=== PATIENT | female | born 1975 | race Caucasian/White ===

== ENCOUNTER 2021-04-04 01:39 | Emergency (ER) | payer OTHER ==
[~2021-04-04] VITALS: Ht 157.5 cm; Wt 86.4 kg
[2021-04-04 02:37] LABS: BILIRUBIN,URINE NEGATIVE (NEG); CLARITY,URINE CLEAR; COLOR,URINE YELLOW; NITRITE,URINE NEGATIVE (NEG); PROTEIN,URINE NEGATIVE (NEG-TRACE); UROBILINOGEN,URINE 0.2 mg/dL (0.2 mg/dL)
[2021-04-04 02:49] LABS: BASO # 0.2 x10^3/uL (0.0-0.2); BASO % 1 % (0-3); EOS # 0.3 x10^3/uL (0.0-0.7); EOS % 2 % (0-3); HEMATOCRIT 36.5 % (36.0-47.0); HEMOGLOBIN 12.4 g/dL (12.0-15.5); LYMPH # 2.8 x10^3/uL (1.0-4.8); LYMPH % 23 % (24-48); MEAN CORPUSCULAR HEMOGLOBIN 31 pg (25-35); MEAN CORPUSCULAR HGB CONC 34 g/dL (31-37); MEAN CORPUSCULAR VOLUME 91 fL (79-100); MONO # 0.7 x10^3/uL (0.0-1.1); MONO % 6 % (0-9); NEUT # 8.1 x10^3/uL (1.8-7.7); NEUT % 67 % (31-73); PLATELET COUNT 210 x10^3/uL (140-400); RED CELL DISTRIBUTION WIDTH 13.2 % (11.5-14.5)
[2021-04-04 02:49] LABS: BACTERIA,URINE MANY /HPF (0-FEW); RBC,URINE OCC /HPF (0-2); WBC,URINE 20-40 /HPF (0-4)
[2021-04-04] MEDS ORDERED: IV NORMAL SALINE 1000ML BAG 1,000 ML IV ONE (03:00)
[2021-04-04] MEDS ORDERED: KETOROLAC 30 MG/ML VIAL. IVP ONE (03:00)
[2021-04-04] MEDS ORDERED: METOCLOPRAMIDE HCL 10 MG/2 ML VIAL. IVP ONE (03:00)
[2021-04-04 03:34] LABS: ALBUMIN 3.2 g/dL (3.4-5.0); ALBUMIN/GLOBULIN RATIO 0.9 (1.0-1.7); CREATININE 0.8 mg/dL (0.6-1.0); GFR 77.6; MAGNESIUM 1.7 mg/dL (1.8-2.4); POTASSIUM 3.5 mmol/L (3.5-5.1); TOTAL BILIRUBIN 0.2 mg/dL (0.2-1.0); TOTAL PROTEIN 6.9 g/dL (6.4-8.2)
[2021-04-04 03:44] VITALS: BP 116/74
--- NOTE | 2021-04-04 03:51 | PHYS DOC ---
Past Medical History Additional Past Medical Histor: BREAST CA, THYROID DISEASE, OVARIAN CYSTS Past Surgical History: Cancer Surgery, Other Additional Past Surgical Histo: DOUBLE MASTECTOMY, OVARIAN CYST REMOVAL, 75% THYROIDECTOMY,PORT Smoking Status: Never Smoker Alcohol Use: Occasionally General Adult EDM: Chief Complaint: ABDOMINAL PAIN HPI: HPI: Patient is a 45 year old female presenting with abdominal pain for 3 hours. Patient's pain starts in the right upper quadrant and radiates to the right flank. She has a similar episode last Sunday but states today's episode is worse. She reports feeling hot and clammy but denies nausea, vomiting and diarrhea. Review of Systems: Review of Systems: Constitutional: Denies fever or chills Eyes: Denies redness or eye pain HENT: Denies nasal congestion or sore throat Respiratory: Denies cough or shortness of breath Cardiovascular: Denies chest pain or palpitations GI: Reports abdominal pain. Denies nausea, or vomiting : Denies dysuria or hematuria. Reports right flank pain Musculoskeletal: Denies back pain or joint pain Integument: Denies rash or skin lesions Neurologic: Denies headache, focal weakness or sensory changes Complete systems were reviewed and found to be within normal limits, except as documented in this note. Heart Score: C/O Chest Pain: N/A Current Medications: Current Medications Medications (Trade) Dose Ordered Sig/[facility] Start Time Stop Time Status Last Admin Dose Admin Ketorolac Tromethamine (Toradol 30mg Vial) 15 mg 1X ONCE 04/04/21 03:00 04/04/21 03:01 DC 04/04/21 02:40 15 MG Metoclopramide HCl (Reglan Vial) 10 mg 1X ONCE 04/04/21 03:00 04/04/21 03:01 DC 04/04/21 02:41 10 MG Sodium Chloride 1,000 ml @ 1,000 mls/hr 1X ONCE 04/04/21 03:00 04/04/21 03:59 04/04/21 02:42 1,000 MLS/HR Allergies: Allergies: Allergies Coded Allergies Type Severity Reaction Last Updated Verified No Known Drug Allergies 04/04/21 No Physical Exam: PE: Constitutional: Well developed, well nourished, mild distress, non-toxic appearance HENT: Normocephalic, atraumatic Eyes: PERRL, EOMI, conjunctiva normal, no discharge Neck: Normal range of motion, no tenderness, supple Lungs & Thorax: No respiratory distress, equal chest rise and fall Abdomen: Tenderness and guarding on the right upper quadrant. Normal bowel sounds in all quadrants. Skin: Warm, dry, no erythema, no rash Back: No tenderness, Tenderness to palpation at the right CVA Extremities: No tenderness, ROM intact, no edema Neurologic: Alert and oriented X 3, normal motor function, normal sensory function, no focal deficits noted Psychologic: Affect normal, judgment normal Current Patient Data: Labs: Laboratory Tests Test 04/04/21 01:42 04/04/21 02:38 Urine Collection Type Unknown Urine Color Yellow Urine Clarity Clear Urine pH 7.0 (<5.0-8.0) Urine Specific [place] 1.015 (1.000-1.030) Urine Protein Negative mg/dL (NEG-TRACE) Urine Glucose (UA) Negative mg/dL (NEG) Urine Ketones (Stick) Negative mg/dL (NEG) Urine Blood Negative (NEG) Urine Nitrite Negative (NEG) Urine Bilirubin Negative (NEG) Urine Urobilinogen Dipstick 0.2 mg/dL (0.2 mg/dL) Urine Leukocyte Esterase Moderate (NEG) Urine RBC Occ /HPF (0-2) Urine WBC 20-40 /HPF (0-4) Urine Squamous Epithelial Cells Many /LPF Urine Bacteria Many /HPF (0-FEW) Urine Mucus Mod /LPF White Blood Count 12.0 x10^3/uL (4.0-11.0) H Red Blood Count 4.00 x10^6/uL (3.50-5.40) Hemoglobin 12.4 g/dL (12.0-15.5) Hematocrit 36.5 % (36.0-47.0) Mean Corpuscular Volume 91 fL (79-100) Mean Corpuscular Hemoglobin 31 pg (25-35) Mean Corpuscular Hemoglobin Concent 34 g/dL (31-37) Red Cell Distribution Width 13.2 % (11.5-14.5) Platelet Count 210 x10^3/uL (140-400) Neutrophils (%) (Auto) 67 % (31-73) Lymphocytes (%) (Auto) 23 % (24-48) L Monocytes (%) (Auto) 6 % (0-9) Eosinophils (%) (Auto) 2 % (0-3) Basophils (%) (Auto) 1 % (0-3) Neutrophils # (Auto) 8.1 x10^3/uL (1.8-7.7) H Lymphocytes # (Auto) 2.8 x10^3/uL (1.0-4.8) Monocytes # (Auto) 0.7 x10^3/uL (0.0-1.1) Eosinophils # (Auto) 0.3 x10^3/uL (0.0-0.7) Basophils # (Auto) 0.2 x10^3/uL (0.0-0.2) Sodium Level 138 mmol/L (136-145) Potassium Level 3.5 mmol/L (3.5-5.1) Chloride Level 102 mmol/L (98-107) Carbon Dioxide Level 26 mmol/L (21-32) Anion Gap 10 (6-14) Blood Urea Nitrogen 17 mg/dL (7-20) Creatinine 0.8 mg/dL (0.6-1.0) Estimated GFR (Cockcroft-Gault) 77.6 BUN/Creatinine Ratio 21 (6-20) H Glucose Level 115 mg/dL (70-99) H Calcium Level 9.0 mg/dL (8.5-10.1) Magnesium Level 1.7 mg/dL (1.8-2.4) L Total Bilirubin 0.2 mg/dL (0.2-1.0) Aspartate Amino Transferase (AST) 20 U/L (15-37) Alanine Aminotransferase (ALT) 43 U/L (14-59) Alkaline Phosphatase 72 U/L (46-116) Total Protein 6.9 g/dL (6.4-8.2) Albumin 3.2 g/dL (3.4-5.0) L Albumin/Globulin Ratio 0.9 (1.0-1.7) L Lipase 91 U/L (73-393) Laboratory Tests 04/04/21 02:38 Laboratory Tests 04/04/21 02:38 Vital Signs: Vital Signs Date Time Temp Pulse Resp B/P (MAP) Pulse Ox O2 Delivery O2 Flow Rate FiO2 04/04/21 02:44 70 17 135/86 (102) 97 Room Air 04/04/21 01:49 98.1 98.1 Course & Med Decision Making: Course & Med Decision Making 40 year old female presenting with right upper quadrant abdominal pain and right flank pain for 3 hours. Patient has no nausea, vomiting or diarrhea and feels hot and clammy. CT of the abdomen and pelvis showed cholelithiasis and negative for kidney stone. Urine showed moderate leukocyte esterase and bacteria, possibly suggestive of pyelonephritis. Based on these findings, patient's condition may be caused by cholelithiasis and/or pyelonephritis. Patient will be treated with antibiotics and discharged home. Patient stable for discharge with outpatient follow-up with PCP. Discussed findings and plan with patient, who acknowledges understanding and agreement. Dragon Disclaimer: Dragon Disclaimer: This electronic medical record was generated, in whole or in part, using a voice recognition dictation system. Departure Departure Impression: Primary Impression: Cholelithiasis Qualified Codes: K80.20 - Calculus of gallbladder without cholecystitis without obstruction Additional Impression: Flank pain Disposition: HOME / SELF CARE / HOMELESS Condition: STABLE Referrals: CATERINA GENTILE MD (PCP) HARVINDER JETT MD Patient Instructions: Abdominal Pain, [id number], Cholelithiasis, [id number], Pyelonephritis, Adult, [id number] Scripts Hydrocodone Bit/Acetaminophen (HYDROCODONE-APAP 5-325 ) 1 Tab Tablet 0.5-1 TAB PO PRN Q6HRS PRN for PAIN, #14 TAB 0 Refills Prov: FABIO SINGLETON DO 04/04/21 Cephalexin (CEPHALEXIN) 500 Mg Tablet 1 TAB PO TID for 7 Days, #21 TAB Prov: FABIO SINGLETON DO 04/04/21 FABIO SINGLETON DO Apr 04, 2021 03:51
--- NOTE | 2021-04-04 03:53 | RAD ---
EXAM: CT ABDOMEN/PELVIS WITHOUT CONTRAST. HISTORY: Right flank pain. TECHNIQUE: Computed tomography of the abdomen and pelvis was performed without intravenous contrast. One or more of the following individualized dose reduction techniques were utilized for this examinat ion: 1. Automated exposure control. 2. Adjustment of the mA and/or kV according to patient size. 3. Use of iterative reconstruction technique. COMPARISON: None. FINDINGS: Lung windows through the visualized portions of the bases reveal a mild pectus excavatum de formity. Bilateral mastectomy changes are suspected. Bone windows reveal no suspicious lesions. Hypoattenuation of the hepatic parenchyma is consistent with diffuse hepatic steatosis. There are andrea cified granulomas in the spleen. A gallstone is noted. An 18 x 12 mm nodule in the left adrenal gland measures 3 Hounsfield units and is consistent with a benign adenoma. The right adrenal gland is unre markable. There are no pathologically enlarged lymph nodes. The appendix is not inflamed. There is no small bowel obstruction. There are no renal or ureteral calculi. There is no hydronephrosis. The kidneys are unremarkable with out contrast. IMPRESSION: 1. No renal or ureteral calculi. 2. Cholelithiasis. 3. 18 mm benign left adrenal adenoma. 4. Suspect diffuse hepatic steatosis. Electronically signed by: Chantel Hoang MD (04/04/2021 3:50 AM) [facility]
[2021-04-04] MEDS ORDERED: CEPH500T PO (04:11)
[2021-04-04] MEDS ORDERED: HYDR-2761 PO (04:11)
[2021-04-04] MEDS ORDERED: cefTRIAXone IV Push 1 GM VIAL. IVP ONE (04:30)
== END 2021-04-04 04:30 | disposition home or self-care (01) ==
LOC: ER 01:39
DX: K80.20 Calculus of gallbladder without cholecystitis without obstruction (principal)
CPT/HCPCS: 36415; 74176; 80053; 81001; 83690; 83735; 85025; 87086; 96361; 96374; 96375; 99285; J0696; J1885; J2765; J7030

== ENCOUNTER 2021-05-23 05:07 | Observation (INO) | payer OTHER ==
[~2021-05-23] VITALS: Ht 157.5 cm; Wt 86.4 kg
[~2021-05-23 05:07] MED LIST: CEPH500T PO; HYDR-2761 PO
[2021-05-23] MEDS ORDERED: IV NORMAL SALINE 1000ML BAG 1,000 ML IV ONE (06:15)
[2021-05-23] MEDS ORDERED: ONDANSETRON PF 4 MG/2 ML VIAL. IVP ONE (06:15)
--- NOTE | 2021-05-23 06:24 | PHYS DOC ---
Past Medical History Additional Past Medical Histor: BREAST CA, THYROID DISEASE, OVARIAN CYSTS Past Surgical History: Cancer Surgery, Other Additional Past Surgical Histo: DOUBLE MASTECTOMY, OVARIAN CYST REMOVAL, 75% THYROIDECTOMY,PORT Smoking Status: Never Smoker Alcohol Use: None Adult General Chief Complaint Chief Complaint: ABDOMINAL PAIN HPI HPI The patient is a 45-year-old female with a history of hypertension and breast cancer treated to remission, on tamoxifen. In March she was found to have cholelithiasis on CT scan after an episode of right upper quadrant pain. She presents for evaluation of epigastric and right upper quadrant pain with radiation to the back, all with onset about 8 to 10 hours prior to arrival. Patient states the discomfort today is identical to the discomfort that she had back in March when her cholelithiasis was diagnosed. Discomfort is constant and a 9 out of 10 in severity at present. Associated nausea with one episode of nonbloody vomiting. No associated fevers, hematemesis, hematochezia or melena, upper respiratory congestion/rhinorrhea, cough, sore throat, shortness of breath or chest pain of any kind, lower abdominal pain of any kind, flank pain, midline back pain, dysuria, hematuria, polyuria or oliguria, changes in bowel habits. Patient is alert and pleasantly and appropriately interactive and in no acute distress with appropriate vital signs upon initial evaluation here in the emergency department. Review of Systems Review of Systems A 12 point review of systems was completed and was negative except where noted in HPI above. Current Medications Current Medications Current Medications Medications (Trade) Dose Ordered Sig/[facility] Start Time Stop Time Status Last Admin Dose Admin Dextrose/Lactated Ringer's 1,000 ml @ 125 mls/hr 1X ONCE 05/23/21 07:45 05/23/21 15:44 Ketorolac Tromethamine (Toradol 15mg Vial) 15 mg 1X ONCE 05/23/21 06:30 05/23/21 06:31 DC 05/23/21 06:58 15 MG Morphine Sulfate (Morphine Sulfate) 2 mg PRN Q2HR PRN 05/23/21 07:45 05/24/21 07:44 Ondansetron HCl (Zofran) 4 mg PRN Q8HRS PRN 05/23/21 07:45 05/24/21 07:44 Piperacillin Sod/ Tazobactam Sod 4.5 gm/Dextrose 100 ml @ 200 mls/hr 1X ONCE 05/23/21 07:32 05/23/21 07:59 Piperacillin Sod/ Tazobactam Sod 4.5 gm/Sodium Chloride 100 ml @ 200 mls/hr 1X ONCE 05/23/21 07:30 05/23/21 07:32 DC Sodium Chloride 1,000 ml @ 1,000 mls/hr 1X ONCE 05/23/21 06:15 05/23/21 07:14 DC 05/23/21 06:29 1,000 MLS/HR Allergies Allergies Allergies Coded Allergies Type Severity Reaction Last Updated Verified No Known Drug Allergies 04/04/21 No Physical Exam Physical Exam Middle-aged female appearing nontoxic and in no acute distress. Head is normocephalic and atraumatic. Neck is supple and nontender. Oropharynx is moist. Lungs are clear to auscultation at all stations. There is a normal S1 and S2 without rubs or gallops and capillary refill is appropriate, less than 2 seconds globally. Abdomen is soft and nondistended with mild focal epigastric and right upper quadrant tenderness to palpation without rebound or guarding. Skin is warm and dry without cyanosis, clubbing or edema. Psychiatrically, the patient demonstrates appropriate mood and affect and is alert. Current Patient Data Vital Signs Vital Signs Date Time Temp Pulse Resp B/P (MAP) Pulse Ox O2 Delivery O2 Flow Rate FiO2 05/23/21 07:14 89 16 135/88 (104) 98 Room Air 05/23/21 05:24 98.0 98.0 Lab Values Laboratory Tests Test 05/23/21 05:15 05/23/21 05:18 05/23/21 06:30 Urine Collection Type Unknown Urine Color Yellow Urine Clarity Clear Urine pH 6.5 (<5.0-8.0) Urine Specific [place] 1.020 (1.000-1.030) Urine Protein Negative mg/dL (NEG-TRACE) Urine Glucose (UA) Negative mg/dL (NEG) Urine Ketones (Stick) Trace mg/dL (NEG) Urine Blood Negative (NEG) Urine Nitrite Negative (NEG) Urine Bilirubin Negative (NEG) Urine Urobilinogen Dipstick 0.2 mg/dL (0.2 mg/dL) Urine Leukocyte Esterase Small (NEG) Urine RBC Occ /HPF (0-2) Urine WBC 6-10 /HPF (0-4) Urine Squamous Epithelial Cells Many /LPF Urine Bacteria Many /HPF (0-FEW) Urine Mucus Marked /LPF Urine Yeast Present /HPF POC Urine HCG, Qualitative Hcg negative (Negative) White Blood Count 12.4 x10^3/uL (4.0-11.0) H Red Blood Count 4.34 x10^6/uL (3.50-5.40) Hemoglobin 13.4 g/dL (12.0-15.5) Hematocrit 39.4 % (36.0-47.0) Mean Corpuscular Volume 91 fL (79-100) Mean Corpuscular Hemoglobin 31 pg (25-35) Mean Corpuscular Hemoglobin Concent 34 g/dL (31-37) Red Cell Distribution Width 13.2 % (11.5-14.5) Platelet Count 249 x10^3/uL (140-400) Neutrophils (%) (Auto) 83 % (31-73) H Lymphocytes (%) (Auto) 14 % (24-48) L Monocytes (%) (Auto) 3 % (0-9) Eosinophils (%) (Auto) 0 % (0-3) Basophils (%) (Auto) 1 % (0-3) Neutrophils # (Auto) 10.3 x10^3/uL (1.8-7.7) H Lymphocytes # (Auto) 1.7 x10^3/uL (1.0-4.8) Monocytes # (Auto) 0.3 x10^3/uL (0.0-1.1) Eosinophils # (Auto) 0.0 x10^3/uL (0.0-0.7) Basophils # (Auto) 0.1 x10^3/uL (0.0-0.2) Laboratory Tests 05/23/21 06:30 EKG EKG [] Radiology/Procedures Radiology/Procedures Clinical History: Right upper quadrant pain and epigastric pain Technique: Sonographic examination of the right upper quadrant of the abdomen was performed and multiple static images were obtained. Comparison: none Findings: Liver: The majority of the liver is visualized and there is increased echogen icity and attenuation of sound which further limits the sensitivity for possible subtle liver lesion. Common bile duct: Dilated to 9 mm in diameter. Gallbladder: Distended with mild wall thickening up to 5 mm there is some small stones or gravel.. Pancreas: is not well visualized due to overlying bowel gas. Right kidney: appears normal and measures 10 cm in length. Aorta: normal IVC: normal Impression: 1. Cholelithiasis and acute cholecystitis. 2. Fatty infiltration of liver. 3. Dilated common bile duct. Electronically signed by: Rut Zuñiga III, MD (05/23/2021 7:00 AM) [facility] DICTATED and SIGNED BY: RUT ZUÑIGA III, MD DATE: 05/23/21 [id number] 0 Course & Med Decision Making Course & Med Decision Making Will place IV and give IV fluids and medication for nausea and discomfort as noted and will check labs, urine and a right upper quadrant ultrasound and will then reevaluate. 0720: Work-up as above, remarkable for sonographic evidence of acute cholecystitis with possible superimposed acute choledocholithiasis. Initial chemistry blood draw hemolyzed so lab was redrawn; still waiting on LFTs and l ipase at this writing. Dose Zosyn given. Pain is very well controlled on serial reassessments. Will bring in for further care under hospitalist Dr. Brumfield, who graciously accepts. Dr. Gresham and Dr. Anne have been consulted for inpatient management. Dragon Disclaimer Dragon Disclaimer This electronic medical record was generated, in whole or in part, using a voice recognition dictation system. Departure Departure Impression: Primary Impression: Acute cholecystitis Disposition: ADMITTED INPATIENT Condition: STABLE Referrals: CATERINA GENTILE MD (PCP) MYA SPAIN MD May 23, 2021 06:24
[2021-05-23] MEDS ORDERED: KETOROLAC 15 MG/ML VIAL. IVP ONE (06:30)
[2021-05-23] MEDS ORDERED: MORPHINE SULFATE 4 MG/ML INJ. IVP ONE (06:30)
[2021-05-23 06:37] LABS: BASO # 0.1 x10^3/uL (0.0-0.2); BASO % 1 % (0-3); EOS % 0 % (0-3); HEMATOCRIT 39.4 % (36.0-47.0); HEMOGLOBIN 13.4 g/dL (12.0-15.5); LYMPH # 1.7 x10^3/uL (1.0-4.8); LYMPH % 14 % (24-48); MEAN CORPUSCULAR HEMOGLOBIN 31 pg (25-35); MEAN CORPUSCULAR HGB CONC 34 g/dL (31-37); MEAN CORPUSCULAR VOLUME 91 fL (79-100); MONO # 0.3 x10^3/uL (0.0-1.1); MONO % 3 % (0-9); NEUT # 10.3 x10^3/uL (1.8-7.7); NEUT % 83 % (31-73); PLATELET COUNT 249 x10^3/uL (140-400); RED BLOOD COUNT 4.34 x10^6/uL (3.50-5.40); RED CELL DISTRIBUTION WIDTH 13.2 % (11.5-14.5); WHITE BLOOD COUNT 12.4 x10^3/uL (4.0-11.0)
[2021-05-23 06:47] LABS: BILIRUBIN,URINE NEGATIVE (NEG); CLARITY,URINE CLEAR; COLOR,URINE YELLOW; NITRITE,URINE NEGATIVE (NEG); PH,URINE 6.5 (<5.0-8.0); PROTEIN,URINE NEGATIVE (NEG-TRACE); UROBILINOGEN,URINE 0.2 mg/dL (0.2 mg/dL)
[2021-05-23 06:59] LABS: BACTERIA,URINE MANY /HPF (0-FEW)
[2021-05-23 07:00] LABS: RBC,URINE OCC /HPF (0-2); YEAST,URINE PRESENT /HPF
--- NOTE | 2021-05-23 07:03 | RAD ---
Clinical History: Right upper quadrant pain and epigastric pain Technique: Sonographic examination of the right upper quadrant of the abdomen was performed and mult iple static images were obtained. Comparison: none Findings: Liver: The majority of the liver is visualized and there is increased echogenicity and attenuation o f sound which further limits the sensitivity for possible subtle liver lesion. Common bile duct: Dilated to 9 mm in diameter. Gallbladder: Distended with mild wall thickening up to 5 mm there is some small stones or gravel.. Pancreas: is not well visualized due to overlying bowel gas. Right kidney: appears normal and measures 10 cm in length. Aorta: normal IVC: normal Impression: 1. Cholelithiasis and acute cholecystitis. 2. Fatty infiltration of liver. 3. Dilated common bile duct. Electronically signed by: Jeremy Orozco III, MD (05/23/2021 7:00 AM) [facility]
[2021-05-23] MEDS ORDERED: PIPERACILLIN/TAZOBACTAM 4.5 GM in IV NORMAL SALINE 100ML 100 ML IV ONE (07:30)
[2021-05-23] MEDS ORDERED: PIPERACILLIN/TAZOBACTAM 4.5 GM in IV DEXTROSE 5% 100ML 100 ML IV ONE (07:32)
[2021-05-23] MEDS ORDERED: MORPHINE SULFATE 2 MG/ML INJ. IVP PRN (07:45)
[2021-05-23] MEDS ORDERED: ONDANSETRON PF 4 MG/2 ML VIAL. IVP PRN (07:45)
[2021-05-23] MEDS ORDERED: IV DEXTROSE 5%-LACT RINGERS 1,000 ML IV ONE (07:45)
[2021-05-23 08:50] LABS: CALCIUM 9.4 mg/dL (8.5-10.1); CREATININE 0.8 mg/dL (0.6-1.0); GFR 77.6; POTASSIUM 3.6 mmol/L (3.5-5.1)
--- NOTE | 2021-05-23 08:53 | PDOC2 ---
GI CONSULT Date of Service: DATE: 05/23/21 TIME: 08:52 Reason For Consult: choledocholithiasis, cholecystitis HPI: HPI: Pleasant 45 y/o female w/ worsening upper abdominal discomfort since last night at 9:30 p.m. - awoke from sleep, occurred several hours after eating. Associated w/ n/v and radiation of pain around/through to upper back. Similar symptoms in 03/2021 (without vomiting) - at that time was noted to have cholelithiasis on CT but also question of kidney infection - was treated w/ antibiotics, pain resolved, and no issues til last night. H/o heartburn improved w/ daily Rx medication - initially bothersome during chemo 3 years ago, then some recurrence recently. Additionally had some dysphagia during chemo as well - food going down slowly, but not necessarily getting stuck - no issues w/ this now though. No hematemesis, hematochezia, melena, diarrhea, or constipation. Has gained weight. No previous EGD or colonoscopy but her PCP has recommended these be scheduled at [facility] soon. No liver, pancreas, or PUD history. No NSAIDs. Had COVID vaccines/booster. PMH: PMH: HTN, breast cancer s/p bilateral mastectomy and chemo on tamoxifen, goiter s/p partial thyroidectomy, adrenal adenoma ovarian cystectomy FH: Family History: Other (grandmother had cholecystectomy) Social History: Smoke: Quit ALCOHOL: none Drugs: None ROS: GEN: Denies fevers, chills, sweats HEENT: Denies blurred vision, sore throat CV: Denies chest pain RESP: Denies shortness of air, cough GI: Per HPI : Denies hematuria, dysuria ENDO: +weight gain NEURO: Denies confusion, dizziness MSK: Denies weakness, joint pain/swelling SKIN: Denies jaundice, pruritus Vitals: Vitals: Vital Signs Date Time Temp Pulse Resp B/P (MAP) Pulse Ox O2 Delivery O2 Flow Rate FiO2 05/23/21 08:26 63 18 139/86 (103) 99 Room Air 05/23/21 05:24 98.0 98.0 Labs: Labs: Laboratory Tests Test 05/23/21 05:15 05/23/21 05:18 05/23/21 06:30 05/23/21 07:26 Urine Collection Type Unknown Urine Color Yellow Urine Clarity Clear Urine pH 6.5 (<5.0-8.0) Urine Specific [place] 1.020 (1.000-1.030) Urine Protein Negative mg/dL (NEG-TRACE) Urine Glucose (UA) Negative mg/dL (NEG) Urine Ketones (Stick) Trace mg/dL (NEG) Urine Blood Negative (NEG) Urine Nitrite Negative (NEG) Urine Bilirubin Negative (NEG) Urine Urobilinogen Dipstick 0.2 mg/dL (0.2 mg/dL) Urine Leukocyte Esterase Small (NEG) Urine RBC Occ /HPF (0-2) Urine WBC 6-10 /HPF (0-4) Urine Squamous Epithelial Cells Many /LPF Urine Bacteria Many /HPF (0-FEW) Urine Mucus Marked /LPF Urine Yeast Present /HPF Bedside Urine HCG, Qualitative Hcg negative (Negative) White Blood Count 12.4 x10^3/uL (4.0-11.0) Red Blood Count 4.34 x10^6/uL (3.50-5.40) Hemoglobin 13.4 g/dL (12.0-15.5) Hematocrit 39.4 % (36.0-47.0) Mean Corpuscular Volume 91 fL (79-100) Mean Corpuscular Hemoglobin 31 pg (25-35) Mean Corpuscular Hemoglobin Concent 34 g/dL (31-37) Red Cell Distribution Width 13.2 % (11.5-14.5) Platelet Count 249 x10^3/uL (140-400) Neutrophils (%) (Auto) 83 % (31-73) Lymphocytes (%) (Auto) 14 % (24-48) Monocytes (%) (Auto) 3 % (0-9) Eosinophils (%) (Auto) 0 % (0-3) Basophils (%) (Auto) 1 % (0-3) Neutrophils # (Auto) 10.3 x10^3/uL (1.8-7.7) Lymphocytes # (Auto) 1.7 x10^3/uL (1.0-4.8) Monocytes # (Auto) 0.3 x10^3/uL (0.0-1.1) Eosinophils # (Auto) 0.0 x10^3/uL (0.0-0.7) Basophils # (Auto) 0.1 x10^3/uL (0.0-0.2) SARS-CoV-2 Antigen (Rapid) Negative (NEGATIVE) Allergies: Coded Allergies: No Known Drug Allergies (Unverified , 04/04/21) Medications: Current Medications Medications (Trade) Dose Ordered Sig/[facility] Route PRN Reason Start Time Stop Time Status Last Admin Dose Admin Sodium Chloride 1,000 ml @ 1,000 mls/hr 1X ONCE IV 05/23/21 06:15 05/23/21 07:14 DC 05/23/21 06:29 Ondansetron HCl (Zofran) 4 mg 1X ONCE IVP 05/23/21 06:15 05/23/21 06:17 DC 05/23/21 06:29 Morphine Sulfate (Morphine Sulfate) 4 mg 1X ONCE IVP 05/23/21 06:30 05/23/21 06:31 DC 05/23/21 06:28 Ketorolac Tromethamine (Toradol 15mg Vial) 15 mg 1X ONCE IVP 05/23/21 06:30 05/23/21 06:31 DC 05/23/21 06:58 Piperacillin Sod/ Tazobactam Sod 4.5 gm/Dextrose 100 ml @ 200 mls/hr 1X ONCE IV 05/23/21 07:32 05/23/21 07:59 DC 05/23/21 08:25 Imaging: Imaging: RUQ US 05/23/21 Findings: Liver: The majority of the liver is visualized and there is increased echogenicity and attenuation of sound which further limits the sensitivity for possible subtle liver lesion. Common bile duct: Dilated to 9 mm in diameter. Gallbladder: Distended with mild wall thickening up to 5 mm there is some small stones or gravel.. Pancreas: is not well visualized due to overlying bowel gas. Right kidney: appears normal and measures 10 cm in length. Aorta: normal IVC: normal Impression: 1. Cholelithiasis and acute cholecystitis. 2. Fatty infiltration of liver. 3. Dilated common bile duct. PE: GEN: NAD, supportive Jose Juan present HEENT: Atraumatic, PERRL LUNGS: CTAB HEART: RRR ABD: quiet, S/ND, epigastric and BUQ discomfort EXTREMITY: No edema SKIN: No rashes, no jaundice NEURO/PSYCH: A & O 3 A/P: A/P: Upper abd pain, n/v - recurrent Cholelithiasis, cholecystitis Dilated CBD - 9mm H/o GERD - controlled w/ PPI CRC screen - none Hepatic steatosis H/o breast cancer Rapid COVID negative -- LFTs, lipase, and surgery opinion pending - await these, trend labs. We discussed cholecystectomy/IOC w/ possible need for MRCP/ERCP. Continue PPI. Agree w/ plan for outpt scopes. MARLENA BATISTA May 23, 2021 08:53
--- NOTE | 2021-05-23 09:00 | NUR ---
patient arrived to room 530 via wheelchair transport from ED. Pt NPO at this time and on room air. pt states she is not in pain at this time. will continue to monitor.
[2021-05-23 09:05] LABS: ALBUMIN 3.7 g/dL (3.4-5.0); ALBUMIN/GLOBULIN RATIO 0.9 (1.0-1.7); TOTAL BILIRUBIN 0.2 mg/dL (0.2-1.0); TOTAL PROTEIN 7.8 g/dL (6.4-8.2)
[2021-05-23 11:00] VITALS: BP 117/90
[2021-05-23] MEDS: PANTOPRAZOLE IV PUSH 40 MG VIAL. IVP SCH (11:43)
--- NOTE | 2021-05-23 12:58 | HP ---
DATE OF SERVICE: 05/23/2021 ADMIT DATE: 05/23/2021 CHIEF COMPLAINT: Abdominal pain. HISTORY OF PRESENT ILLNESS: The patient is a pleasant 45-year-old female who presented to the ER with abdominal pain. We did some imaging. She seems to have cholecystitis. I discussed the case with the ER physician. We are going to admit the patient and consult General Surgery and GI. PAST MEDICAL HISTORY: Breast cancer, thyroid disease, ovarian cyst, double mastectomy, 75% thyroidectomy, ovarian cyst removal. ALLERGIES: None. FAMILY HISTORY: Diabetes. SOCIAL HISTORY: She does not drink, smoke or take drugs. She is . Her is present, seems to be good support for her. MEDICATIONS: Reviewed. Please refer to the MRAD. REVIEW OF SYSTEMS: GENERAL: No history of weight change, weakness or fevers. SKIN: No bruising, hair changes or rashes. EYES: No blurred, double or loss of vision. NOSE AND THROAT: No history of nosebleeds, hoarseness or sore throat. HEART: No history of palpitations, chest pain or shortness of breath on exertion. LUNGS: Denies cough, hemoptysis, wheezing or shortness of breath. GASTROINTESTINAL: She complains of abdominal pain. GENITOURINARY: No history of frequency, urgency, hesitancy or nocturia. NEUROLOGIC: Denies history of numbness, tingling, tremor or weakness. PSYCHIATRIC: No history of panic, anxiety or depression. ENDOCRINE: No history of heat or cold intolerance, polyuria or polydipsia. EXTREMITIES: Denies muscle weakness, joint pain, pain on walking or stiffness. PHYSICAL EXAMINATION: VITALS: Within normal limits and are stable. GENERAL: No apparent distress. Alert and oriented. HEENT: Normal cephalic atraumatic, external auditory canals are patent. Eyes: Extraocular muscles are intact, pupils are equally round and reactive to light and accommodation. MUSCULOSKELETAL: Well developed, well nourished, good range of motion. ENDOCRINE: No thyromegaly was palpated. LYMPHATICS: No cervical chain or axillary nodes were noted. HEMATOPOIETIC: No bruising. NECK: Supple, no JVD, no thyromegaly was noted. LUNGS: Clear to auscultation in all lung huertas without rhonchi or wheezing. HEART: RRR, S1, S2 present. Peripheral pulses intact, no obvious murmurs were noted. ABDOMEN: She has decreased bowel sounds with tenderness to palpation. EXTREMITIES: Without any cyanosis, clubbing, or edema. Pedal pulses intact, Homans sign is negative. NEUROLOGIC: Normal speech, normal tone. A and O x 3, moves all extremities, no obvious focal deficits. PSYCHIATRIC: Normal affect, normal mood. Stable. SKIN: No ulcerations or rashes, good skin turgor, no jaundice. VASCULAR: Good capillary refill, neurovascular bundle appears to be intact. LABORATORY DATA: White count is 12. Electrolytes are normal. Imaging is confirming gallstones and cholecystitis. ASSESSMENT AND PLAN: Gallstone cholecystitis. The patient has been admitted. We will consult General Surgery and GI. We started IV Zosyn, IV fluids, p.r.n. pain meds, p.r.n. Zofran, home meds. Deep venous thrombosis prophylaxis. Full code. NOBLE/YO DR: Cassy TID: [id number]
--- NOTE | 2021-05-23 13:15 | PDOC2 ---
SOURAV [employer]ÓN [employer] 05/23/21 1315: CONSULT Date of Consult Date of Consult DATE: 05/23/21 TIME: 13:03 Reason for Consult Reason for Consult: cholecystitis Referring Physician Referring Physician: ER Identification/Chief Complaint Chief Complaint abdominal pain Source Source: Chart review, Patient History of Present Illness Reason for Visit: Acute onset of upper abdominal pain, radiates to back, associated nausea, em esis. Similar symptoms in Dec, also treated for UTI, resolved, has not reoccurred until now Past Medical History GI: GERD Heme/Onc: Cancer (breast ) Psych: Anxiety Past Surgical History Past Surgical History: No pertinent history Family History Family History: Other (non contributory to current illness ) Social History Quit ALCOHOL: none Drugs: None Current Problem List Problem List Problems Medical Problems: (1) Acute cholecystitis Status: Acute (2) Right upper quadrant abdominal pain Status: Acute Current Medications Current Medications Current Medications Sodium Chloride 1,000 ml @ 1,000 mls/hr 1X ONCE IV Last administered on 05/23/21at 06:29; Start 05/23/21 at 06:15; Stop 05/23/21 at 07:14; Status DC Ondansetron HCl (Zofran) 4 mg 1X ONCE IVP Last administered on 05/23/21at 06:29; Start 05/23/21 at 06:15; Stop 05/23/21 at 06:17; Status DC Morphine Sulfate (Morphine Sulfate) 4 mg 1X ONCE IVP Last administered on 05/23/21at 06:28; Start 05/23/21 at 06:30; Stop 05/23/21 at 06:31; Status DC Ketorolac Tromethamine (Toradol 15mg Vial) 15 mg 1X ONCE IVP Last administered on 05/23/21at 06:58; Start 05/23/21 at 06:30; Stop 05/23/21 at 06:31; Status DC Piperacillin Sod/ Tazobactam Sod 4.5 gm/Sodium Chloride 100 ml @ 200 mls/hr 1X ONCE IV ; Start 05/23/21 at 07:30; Stop 05/23/21 at 07:32; Status DC Piperacillin Sod/ Tazobactam Sod 4.5 gm/Dextrose 100 ml @ 200 mls/hr 1X ONCE IV Last administered on 05/23/21at 08:25; Start 05/23/21 at 07:32; Stop 05/23/21 at 07:59; Status DC Ondansetron HCl (Zofran) 4 mg PRN Q8HRS PRN IVP NAUSEA/VOMITING; Start 05/23/21 at 07:45; Stop 05/24/21 at 07:44 Morphine Sulfate (Morphine Sulfate) 2 mg PRN Q2HR PRN IVP PAIN; Start 05/23/21 at 07:45; Stop 05/24/21 at 07:44 Dextrose/Lactated Ringer's 1,000 ml @ 125 mls/hr 1X ONCE IV Last administered on 05/23/21at 11:41; Start 05/23/21 at 07:45; Stop 05/23/21 at 15:44 Pantoprazole Sodium (PROTONIX VIAL for IV PUSH) 40 mg DAILY IVP Last administered on 05/23/21at 11:43; Start 05/23/21 at 09:15 Piperacillin Sod/ Tazobactam Sod 3.375 gm/Sodium Chloride 50 ml @ 100 mls/hr Q6HRS IV ; Start 05/23/21 at 13:30 Active Scripts Active Hydrocodone-Apap 5-325 (Hydrocodone Bit/Acetaminophen) 1 Tab Tablet 0.5-1 Tab PO PRN Q6HRS PRN Cephalexin 500 Mg Tablet 1 Tab PO TID 7 Days Allergies Allergies: Coded Allergies: No Known Drug Allergies (Unverified , 04/04/21) ROS General: No: Chills, Malaise PSYCHOLOGICAL ROS: No: Anxiety, Depression Eyes: No Blurry vision HEENT: No: Heacaches, Sore Throat Hematological and Lymphatic: No: Bleeding Problems, Blood Clots Respiratory: No: Cough, Shortness of breath Cardiovascular: No Chest Pain, No Palpitations Gastrointestinal: Yes Other (see hpi) Genitourinary: No Dysuria, No Hematuria Musculoskeletal: No Joint Pain, No Muscle Pain Neurological: No Impaired Coord/balance, No Numbness/Tingling Skin: No Pruritus, No Rash Physical Exam General: Alert, Oriented X3, Cooperative HEENT: Atraumatic, PERRLA Lungs: Clear to auscultation, Normal air movement Heart: Regular rate, Normal S1, Normal S2 Abdomen: Soft, Other (mild epigastric ttp ) Extremities: No clubbing, No cyanosis Skin: No rashes, No breakdown Neuro: Normal gait, Normal speech Psych/Mental Status: Mental status NL, Mood NL MUSCULOSKELETAL: No deformity, No swelling Vitals VITALS Vital Signs Date Time Temp Pulse Resp B/P (MAP) Pulse Ox O2 Delivery O2 Flow Rate FiO2 05/23/21 11:00 98.0 73 19 117/90 (99) 96 Room Air 98.0 Labs Labs Laboratory Tests Test 05/23/21 05:15 05/23/21 05:18 05/23/21 06:30 05/23/21 07:26 Urine Collection Type Unknown Urine Color Yellow Urine Clarity Clear Urine pH 6.5 (<5.0-8.0) Urine Specific [place] 1.020 (1.000-1.030) Urine Protein Negative mg/dL (NEG-TRACE) Urine Glucose (UA) Negative mg/dL (NEG) Urine Ketones (Stick) Trace mg/dL (NEG) Urine Blood Negative (NEG) Urine Nitrite Negative (NEG) Urine Bilirubin Negative (NEG) Urine Urobilinogen Dipstick 0.2 mg/dL (0.2 mg/dL) Urine Leukocyte Esterase Small (NEG) Urine RBC Occ /HPF (0-2) Urine WBC 6-10 /HPF (0-4) Urine Squamous Epithelial Cells Many /LPF Urine Bacteria Many /HPF (0-FEW) Urine Mucus Marked /LPF Urine Yeast Present /HPF Bedside Urine HCG, Qualitative Hcg negative (Negative) White Blood Count 12.4 x10^3/uL (4.0-11.0) Red Blood Count 4.34 x10^6/uL (3.50-5.40) Hemoglobin 13.4 g/dL (12.0-15.5) Hematocrit 39.4 % (36.0-47.0) Mean Corpuscular Volume 91 fL (79-100) Mean Corpuscular Hemoglobin 31 pg (25-35) Mean Corpuscular Hemoglobin Concent 34 g/dL (31-37) Red Cell Distribution Width 13.2 % (11.5-14.5) Platelet Count 249 x10^3/uL (140-400) Neutrophils (%) (Auto) 83 % (31-73) Lymphocytes (%) (Auto) 14 % (24-48) Monocytes (%) (Auto) 3 % (0-9) Eosinophils (%) (Auto) 0 % (0-3) Basophils (%) (Auto) 1 % (0-3) Neutrophils # (Auto) 10.3 x10^3/uL (1.8-7.7) Lymphocytes # (Auto) 1.7 x10^3/uL (1.0-4.8) Monocytes # (Auto) 0.3 x10^3/uL (0.0-1.1) Eosinophils # (Auto) 0.0 x10^3/uL (0.0-0.7) Basophils # (Auto) 0.1 x10^3/uL (0.0-0.2) SARS-CoV-2 Antigen (Rapid) Negative (NEGATIVE) Test 05/23/21 08:20 Sodium Level 139 mmol/L (136-145) Potassium Level 3.6 mmol/L (3.5-5.1) Chloride Level 100 mmol/L (98-107) Carbon Dioxide Level 26 mmol/L (21-32) Anion Gap 13 (6-14) Blood Urea Nitrogen 14 mg/dL (7-20) Creatinine 0.8 mg/dL (0.6-1.0) Estimated GFR (Cockcroft-Gault) 77.6 BUN/Creatinine Ratio 18 (6-20) Glucose Level 123 mg/dL (70-99) Calcium Level 9.4 mg/dL (8.5-10.1) Total Bilirubin 0.2 mg/dL (0.2-1.0) Aspartate Amino Transf (AST/SGOT) 18 U/L (15-37) Alanine Aminotransferase (ALT/SGPT) 40 U/L (14-59) Alkaline Phosphatase 68 U/L (46-116) Total Protein 7.8 g/dL (6.4-8.2) Albumin 3.7 g/dL (3.4-5.0) Albumin/Globulin Ratio 0.9 (1.0-1.7) Lipase 68 U/L (73-393) Laboratory Tests Test 05/23/21 05:15 05/23/21 05:18 05/23/21 06:30 05/23/21 07:26 Urine Collection Type Unknown Urine Color Yellow Urine Clarity Clear Urine pH 6.5 (<5.0-8.0) Urine Specific [place] 1.020 (1.000-1.030) Urine Protein Negative mg/dL (NEG-TRACE) Urine Glucose (UA) Negative mg/dL (NEG) Urine Ketones (Stick) Trace mg/dL (NEG) Urine Blood Negative (NEG) Urine Nitrite Negative (NEG) Urine Bilirubin Negative (NEG) Urine Urobilinogen Dipstick 0.2 mg/dL (0.2 mg/dL) Urine Leukocyte Esterase Small (NEG) Urine RBC Occ /HPF (0-2) Urine WBC 6-10 /HPF (0-4) Urine Squamous Epithelial Cells Many /LPF Urine Bacteria Many /HPF (0-FEW) Urine Mucus Marked /LPF Urine Yeast Present /HPF Bedside Urine HCG, Qualitative Hcg negative (Negative) White Blood Count 12.4 x10^3/uL (4.0-11.0) Red Blood Count 4.34 x10^6/uL (3.50-5.40) Hemoglobin 13.4 g/dL (12.0-15.5) Hematocrit 39.4 % (36.0-47.0) Mean Corpuscular Volume 91 fL (79-100) Mean Corpuscular Hemoglobin 31 pg (25-35) Mean Corpuscular Hemoglobin Concent 34 g/dL (31-37) Red Cell Distribution Width 13.2 % (11.5-14.5) Platelet Count 249 x10^3/uL (140-400) Neutrophils (%) (Auto) 83 % (31-73) Lymphocytes (%) (Auto) 14 % (24-48) Monocytes (%) (Auto) 3 % (0-9) Eosinophils (%) (Auto) 0 % (0-3) Basophils (%) (Auto) 1 % (0-3) Neutrophils # (Auto) 10.3 x10^3/uL (1.8-7.7) Lymphocytes # (Auto) 1.7 x10^3/uL (1.0-4.8) Monocytes # (Auto) 0.3 x10^3/uL (0.0-1.1) Eosinophils # (Auto) 0.0 x10^3/uL (0.0-0.7) Basophils # (Auto) 0.1 x10^3/uL (0.0-0.2) SARS-CoV-2 Antigen (Rapid) Negative (NEGATIVE) Test 05/23/21 08:20 Sodium Level 139 mmol/L (136-145) Potassium Level 3.6 mmol/L (3.5-5.1) Chloride Level 100 mmol/L (98-107) Carbon Dioxide Level 26 mmol/L (21-32) Anion Gap 13 (6-14) Blood Urea Nitrogen 14 mg/dL (7-20) Creatinine 0.8 mg/dL (0.6-1.0) Estimated GFR (Cockcroft-Gault) 77.6 BUN/Creatinine Ratio 18 (6-20) Glucose Level 123 mg/dL (70-99) Calcium Level 9.4 mg/dL (8.5-10.1) Total Bilirubin 0.2 mg/dL (0.2-1.0) Aspartate Amino Transf (AST/SGOT) 18 U/L (15-37) Alanine Aminotransferase (ALT/SGPT) 40 U/L (14-59) Alkaline Phosphatase 68 U/L (46-116) Total Protein 7.8 g/dL (6.4-8.2) Albumin 3.7 g/dL (3.4-5.0) Albumin/Globulin Ratio 0.9 (1.0-1.7) Lipase 68 U/L (73-393) Assessment/Plan Assessment/Plan acute cholecystitis will work on scheduling lap chelle will review with Dr Gresham ok for clears today consult, chart 20 mins DENYS GRESHAM MD 05/23/212100: CONSULT Assessment/Plan Assessment/Plan Pt seen and examined. Agree with Ms. Colón's note Pt feels better abd soft, mild TTP RUQ OR not available today will plan cholecystectomy with cholangiogram 05/24 at 1300. R/R/B/A d/w pt. Risks, including, but not limited to: bleeding, infection, damage to surrounding structures, risk of anesthesia, risk of open. She appears to understand, her questions are answered and she elects to proceed. Thanks for consult! SHILPASOURAVANUPAMA Prince APRN May 23, 2021 13:15 DENYS GRESHAM MD May 23, 2021 21:01
[2021-05-23] MEDS: PIPERACILLIN/TAZOBACTAM 3.375 GM in IV NORMAL SALINE 50ML 50 ML IV SCH ×3 (13:41→23:03)
[2021-05-23 14:41] VITALS: BP 100/59
[2021-05-23] MEDS ORDERED: AMIT100T PO (14:44)
[2021-05-23] MEDS ORDERED: TAMO10TA6 PO (14:44)
[2021-05-23] MEDS ORDERED: LISI1TAB37 PO (14:44)
[2021-05-23] MEDS ORDERED: ESCITALOPRAM OX10 MG PO (14:44)
[2021-05-23] MEDS ORDERED: PANT40TA77 PO (14:44)
[2021-05-23] MEDS ORDERED: AMIT50TA PO (14:44)
[2021-05-23] MEDS ORDERED: LORA0.5T96 PO (14:44)
[2021-05-23 19:00] VITALS: BP 110/76
[2021-05-23 23:00] VITALS: BP 90/49
[2021-05-24] VITALS (15 sets, daily range): BP systolic 97–127; BP diastolic 67–88
[2021-05-24 05:16] LABS: BASO # 0.1 x10^3/uL (0.0-0.2); BASO % 1 % (0-3); EOS # 0.3 x10^3/uL (0.0-0.7); EOS % 4 % (0-3); HEMATOCRIT 36.8 % (36.0-47.0); HEMOGLOBIN 12.4 g/dL (12.0-15.5); LYMPH # 2.7 x10^3/uL (1.0-4.8); LYMPH % 36 % (24-48); MEAN CORPUSCULAR HEMOGLOBIN 31 pg (25-35); MEAN CORPUSCULAR HGB CONC 34 g/dL (31-37); MEAN CORPUSCULAR VOLUME 91 fL (79-100); MONO # 0.6 x10^3/uL (0.0-1.1); MONO % 8 % (0-9); NEUT # 3.8 x10^3/uL (1.8-7.7); NEUT % 52 % (31-73); PLATELET COUNT 193 x10^3/uL (140-400); RED BLOOD COUNT 4.04 x10^6/uL (3.50-5.40); RED CELL DISTRIBUTION WIDTH 13.5 % (11.5-14.5); WHITE BLOOD COUNT 7.4 x10^3/uL (4.0-11.0)
[2021-05-24] MEDS: PIPERACILLIN/TAZOBACTAM 3.375 GM in IV NORMAL SALINE 50ML 50 ML IV SCH ×4 (05:35→23:38)
[2021-05-24 05:36] LABS: ALBUMIN 2.9 g/dL (3.4-5.0); CALCIUM 8.6 mg/dL (8.5-10.1); CREATININE 0.8 mg/dL (0.6-1.0); DIRECT BILIRUBIN 0.1 mg/dL (0.0-0.2); GFR 77.6; POTASSIUM 3.7 mmol/L (3.5-5.1); TOTAL BILIRUBIN 0.3 mg/dL (0.2-1.0)
[2021-05-24] MEDS ORDERED: HEPARIN 1,000 UNIT in IV NORMAL SALINE 1,000 ML for SURG PERIOP IRR ONE (06:00)
[2021-05-24] MEDS: PANTOPRAZOLE IV PUSH 40 MG VIAL. IVP SCH (08:54)
[2021-05-24] MEDS ORDERED: GLYCOPYRROLATE 1 MG/5 ML VIAL. ONE (09:19)
[2021-05-24] MEDS ORDERED: PROPOFOL 10 MG/ML (20ML) VIAL. IV ONE (09:19)
[2021-05-24] MEDS ORDERED: ONDANSETRON PF 4 MG/2 ML VIAL. ONE (09:19)
[2021-05-24] MEDS ORDERED: DEXAMETHASONE SOD PHOS 4 MG/ML VIAL ONE (09:19)
[2021-05-24] MEDS ORDERED: NEOSTIGMINE METHYLSULFATE 5 MG/5 ML SYRINGE. ONE (09:20)
[2021-05-24] MEDS ORDERED: fentaNYL PF VIAL 100 MCG/2 ML VIAL ONE ×2 (09:20→14:57)
[2021-05-24] MEDS ORDERED: MIDAZOLAM HCL/PF 2 MG/2 ML VIAL. ONE (09:20)
[2021-05-24] MEDS ORDERED: ROCURONIUM 50 MG/5 ML VIAL. ONE (09:20)
--- NOTE | 2021-05-24 10:07 | PDOC ---
[employer] PROGRESS NOTE Date of Service DOS: DATE: 05/24/21 TIME: 10:03 Chief Complaint Chief Complaint Gallstone cholecystitis PMH: Breast cancer Double mastectomy, Thyroid disease 75% thyroidectomy Ovarian cyst Ovarian cyst removal History of Present Illness History of Present Illness Patient seen and examined beside. Was alert, pleasant, and ready for surgery this afternoon. Chart reviewed Discussed with RN Vitals/I&O Vitals/I&O: Vital Signs Date Time Temp Pulse Resp B/P (MAP) Pulse Ox O2 Delivery O2 Flow Rate FiO2 05/24/21 07:00 97.8 94 17 104/67 (79) 95 Room Air 97.8 I & O 05/23/21 05/23/21 05/24/21 15:00 23:00 07:00 Intake Total 600 ml 1050 ml 340 ml Balance 600 ml 1050 ml 340 ml Physical Exam General: Alert, Oriented X3, Cooperative Heart: Regular rate, Normal S1, Normal S2 Abdomen: Soft, Other (mild epigastric ttp ) Extremities: No clubbing, No cyanosis Skin: No rashes, No breakdown Labs Labs: Laboratory Tests Test 05/24/21 04:45 White Blood Count 7.4 x10^3/uL (4.0-11.0) Red Blood Count 4.04 x10^6/uL (3.50-5.40) Hemoglobin 12.4 g/dL (12.0-15.5) Hematocrit 36.8 % (36.0-47.0) Mean Corpuscular Volume 91 fL (79-100) Mean Corpuscular Hemoglobin 31 pg (25-35) Mean Corpuscular Hemoglobin Concent 34 g/dL (31-37) Red Cell Distribution Width 13.5 % (11.5-14.5) Platelet Count 193 x10^3/uL (140-400) Neutrophils (%) (Auto) 52 % (31-73) Lymphocytes (%) (Auto) 36 % (24-48) Monocytes (%) (Auto) 8 % (0-9) Eosinophils (%) (Auto) 4 % (0-3) Basophils (%) (Auto) 1 % (0-3) Neutrophils # (Auto) 3.8 x10^3/uL (1.8-7.7) Lymphocytes # (Auto) 2.7 x10^3/uL (1.0-4.8) Monocytes # (Auto) 0.6 x10^3/uL (0.0-1.1) Eosinophils # (Auto) 0.3 x10^3/uL (0.0-0.7) Basophils # (Auto) 0.1 x10^3/uL (0.0-0.2) Sodium Level 146 mmol/L (136-145) Potassium Level 3.7 mmol/L (3.5-5.1) Chloride Level 107 mmol/L (98-107) Carbon Dioxide Level 27 mmol/L (21-32) Anion Gap 12 (6-14) Blood Urea Nitrogen 12 mg/dL (7-20) Creatinine 0.8 mg/dL (0.6-1.0) Estimated GFR (Cockcroft-Gault) 77.6 Glucose Level 94 mg/dL (70-99) Calcium Level 8.6 mg/dL (8.5-10.1) Total Bilirubin 0.3 mg/dL (0.2-1.0) Direct Bilirubin 0.1 mg/dL (0.0-0.2) Aspartate Amino Transf (AST/SGOT) 6 U/L (15-37) Alanine Aminotransferase (ALT/SGPT) 23 U/L (14-59) Alkaline Phosphatase 47 U/L (46-116) Total Protein 6.0 g/dL (6.4-8.2) Albumin 2.9 g/dL (3.4-5.0) Assessment and Plan Assessmemt and Plan ASSESSMENT: Gallstone cholecystitis Breast cancer Double mastectomy, Thyroid disease 75% thyroidectomy Ovarian cyst Ovarian cyst removal PLAN: GI and Gen surg consulted - surgery 05/24. IV Zosyn IV fluids PRN pain meds PRN Zofran Home meds Deep venous thrombosis prophylaxis Full code Comment Review of Relevant I have reviewed the following items demetrio (where applicable) has been applied. Medications: Current Medications Medications (Trade) Dose Ordered Sig/Lamar Route PRN Reason Start Time Stop Time Status Last Admin Dose Admin Piperacillin Sod/ Tazobactam Sod 3.375 gm/Sodium Chloride 50 ml @ 100 mls/hr Q6HRS IV 05/23/21 13:30 05/24/21 05:35 Justifications for Admission Other Justification TYSHAWN BEAULIEU III DO May 24, 2021 10:07
--- NOTE | 2021-05-24 10:07 | PDOC ---
Date of Service: DATE: 05/24/21 TIME: 10:04 Subjective: Subjective: Feels better, awaiting surgery. Objective: Vital Signs: Vital Signs Date Time Temp Pulse Resp B/P (MAP) Pulse Ox O2 Delivery O2 Flow Rate FiO2 05/24/21 07:00 97.8 94 17 104/67 (79) 95 Room Air 97.8 Labs: Laboratory Tests Test 05/24/21 04:45 White Blood Count 7.4 x10^3/uL Red Blood Count 4.04 x10^6/uL Hemoglobin 12.4 g/dL Hematocrit 36.8 % Mean Corpuscular Volume 91 fL Mean Corpuscular Hemoglobin 31 pg Mean Corpuscular Hemoglobin Concent 34 g/dL Red Cell Distribution Width 13.5 % Platelet Count 193 x10^3/uL Neutrophils (%) (Auto) 52 % Lymphocytes (%) (Auto) 36 % Monocytes (%) (Auto) 8 % Eosinophils (%) (Auto) 4 % Basophils (%) (Auto) 1 % Neutrophils # (Auto) 3.8 x10^3/uL Lymphocytes # (Auto) 2.7 x10^3/uL Monocytes # (Auto) 0.6 x10^3/uL Eosinophils # (Auto) 0.3 x10^3/uL Basophils # (Auto) 0.1 x10^3/uL Sodium Level 146 mmol/L Potassium Level 3.7 mmol/L Chloride Level 107 mmol/L Carbon Dioxide Level 27 mmol/L Anion Gap 12 Blood Urea Nitrogen 12 mg/dL Creatinine 0.8 mg/dL Estimated GFR (Cockcroft-Gault) 77.6 Glucose Level 94 mg/dL Calcium Level 8.6 mg/dL Total Bilirubin 0.3 mg/dL Direct Bilirubin 0.1 mg/dL Aspartate Amino Transf (AST/SGOT) 6 U/L Alanine Aminotransferase (ALT/SGPT) 23 U/L Alkaline Phosphatase 47 U/L Total Protein 6.0 g/dL Albumin 2.9 g/dL PE: GEN: NAD LUNGS: CTAB HEART: RRR ABD: S/ND/NT NEURO/PSYCH: A & O 3 A/P: Recurrent upper abd pain - better Cholelithiasis/cholecystitis Dilated CBD - normal LFTs x 2 H/o GERD - controlled w/ PPI COVID negative -- Plans for cholecystectomy/IOC today - following along. Continue PPI - change to PO as able. Outpt EGD and colonoscopy as previously discussed. Justicifation of Admission Dx: Justifications for Admission: Justification of Admission Dx: Yes MARLENA BATISTA May 24, 2021 10:07
--- NOTE | 2021-05-24 11:35 | NUR ---
SW following. Discussed with RN, pt from home with , room air, NPO, independent, COVID-19 negative. Surgery following. RN advised no SW needs at this time. SW will continue to follow.
[2021-05-24] MEDS ORDERED: PHENYLEPHRINE in 0.9% NACL PF 1 MG/10 ML SYRINGE. IV ONE (11:37)
[2021-05-24] MEDS ORDERED: IV RINGERS,LACTATED 1000ML 1,000 ML IV SCH (12:30)
[2021-05-24] MEDS ORDERED: SURGICEL HEMOSTAT 2X14 EACH. ONE (12:41)
[2021-05-24] MEDS ORDERED: BUPIVACAINE-EPI 0.25% 30 ML VIAL KIT. ONE (12:42)
[2021-05-24] MEDS ORDERED: IOHEXOL 300 MG/ML 50 ML VIAL. ONE (12:42)
[2021-05-24] MEDS ORDERED: BISACODYL 10 MG SUPP.RECT. ONE (12:42)
[2021-05-24] MEDS ORDERED: BUPIVACAINE-EPI 0.5% 30 ML VIAL KIT. ONE (12:42)
[2021-05-24] MEDS ORDERED: SEVOFLURANE 61 TO 120 MINUTES. IH ONE (12:54)
--- NOTE | 2021-05-24 13:18 | PDOC ---
SURGICAL PROGRESS NOTE DATE: 05/24/21 TIME: 13:16 Subjective Pre-Op Note 45 yo F with calculous cholecystitis. TO OR for laparoscopic versus open cholecystectomy with cholangiogram. R/R/B/A d/w pt. Risks, including, but not limited to: bleeding, infection, damage to surrounding structures, risk of anesthesia, risk of open. She appears to understand, her questions are answered and she elects to proceed. Vital Signs Vital Signs Date Time Temp Pulse Resp B/P (MAP) Pulse Ox O2 Delivery O2 Flow Rate FiO2 05/24/21 12:12 97.8 93 15 116/80 96 Room Air 97.8 I&O Intake and Output 05/24/21 07:00 Intake Total 1990 ml Balance 1990 ml Intake Oral 240 ml IV Total 1750 ml # Voids 2 Labs Laboratory Tests Test 05/23/21 05:15 05/23/21 05:18 05/23/21 06:30 05/23/21 07:26 Urine Collection Type Unknown Urine Color Yellow Urine Clarity Clear Urine pH 6.5 (<5.0-8.0) Urine Specific [place] 1.020 (1.000-1.030) Urine Protein Negative mg/dL (NEG-TRACE) Urine Glucose (UA) Negative mg/dL (NEG) Urine Ketones (Stick) Trace mg/dL (NEG) Urine Blood Negative (NEG) Urine Nitrite Negative (NEG) Urine Bilirubin Negative (NEG) Urine Urobilinogen Dipstick 0.2 mg/dL (0.2 mg/dL) Urine Leukocyte Esterase Small (NEG) Urine RBC Occ /HPF (0-2) Urine WBC 6-10 /HPF (0-4) Urine Squamous Epithelial Cells Many /LPF Urine Bacteria Many /HPF (0-FEW) Urine Mucus Marked /LPF Urine Yeast Present /HPF Bedside Urine HCG, Qualitative Hcg negative (Negative) White Blood Count 12.4 x10^3/uL (4.0-11.0) Red Blood Count 4.34 x10^6/uL (3.50-5.40) Hemoglobin 13.4 g/dL (12.0-15.5) Hematocrit 39.4 % (36.0-47.0) Mean Corpuscular Volume 91 fL (79-100) Mean Corpuscular Hemoglobin 31 pg (25-35) Mean Corpuscular Hemoglobin Concent 34 g/dL (31-37) Red Cell Distribution Width 13.2 % (11.5-14.5) Platelet Count 249 x10^3/uL (140-400) Neutrophils (%) (Auto) 83 % (31-73) Lymphocytes (%) (Auto) 14 % (24-48) Monocytes (%) (Auto) 3 % (0-9) Eosinophils (%) (Auto) 0 % (0-3) Basophils (%) (Auto) 1 % (0-3) Neutrophils # (Auto) 10.3 x10^3/uL (1.8-7.7) Lymphocytes # (Auto) 1.7 x10^3/uL (1.0-4.8) Monocytes # (Auto) 0.3 x10^3/uL (0.0-1.1) Eosinophils # (Auto) 0.0 x10^3/uL (0.0-0.7) Basophils # (Auto) 0.1 x10^3/uL (0.0-0.2) SARS-CoV-2 RNA (CLIF) Negative (Negative) SARS-CoV-2 Antigen (Rapid) Negative (NEGATIVE) Test 05/23/21 08:20 05/24/21 04:45 Sodium Level 139 mmol/L (136-145) 146 mmol/L (136-145) Potassium Level 3.6 mmol/L (3.5-5.1) 3.7 mmol/L (3.5-5.1) Chloride Level 100 mmol/L (98-107) 107 mmol/L (98-107) Carbon Dioxide Level 26 mmol/L (21-32) 27 mmol/L (21-32) Anion Gap 13 (6-14) 12 (6-14) Blood Urea Nitrogen 14 mg/dL (7-20) 12 mg/dL (7-20) Creatinine 0.8 mg/dL (0.6-1.0) 0.8 mg/dL (0.6-1.0) Estimated GFR (Cockcroft-Gault) 77.6 77.6 BUN/Creatinine Ratio 18 (6-20) Glucose Level 123 mg/dL (70-99) 94 mg/dL (70-99) Calcium Level 9.4 mg/dL (8.5-10.1) 8.6 mg/dL (8.5-10.1) Total Bilirubin 0.2 mg/dL (0.2-1.0) 0.3 mg/dL (0.2-1.0) Aspartate Amino Transf (AST/SGOT) 18 U/L (15-37) 6 U/L (15-37) Alanine Aminotransferase (ALT/SGPT) 40 U/L (14-59) 23 U/L (14-59) Alkaline Phosphatase 68 U/L (46-116) 47 U/L (46-116) Total Protein 7.8 g/dL (6.4-8.2) 6.0 g/dL (6.4-8.2) Albumin 3.7 g/dL (3.4-5.0) 2.9 g/dL (3.4-5.0) Albumin/Globulin Ratio 0.9 (1.0-1.7) Lipase 68 U/L (73-393) White Blood Count 7.4 x10^3/uL (4.0-11.0) Red Blood Count 4.04 x10^6/uL (3.50-5.40) Hemoglobin 12.4 g/dL (12.0-15.5) Hematocrit 36.8 % (36.0-47.0) Mean Corpuscular Volume 91 fL (79-100) Mean Corpuscular Hemoglobin 31 pg (25-35) Mean Corpuscular Hemoglobin Concent 34 g/dL (31-37) Red Cell Distribution Width 13.5 % (11.5-14.5) Platelet Count 193 x10^3/uL (140-400) Neutrophils (%) (Auto) 52 % (31-73) Lymphocytes (%) (Auto) 36 % (24-48) Monocytes (%) (Auto) 8 % (0-9) Eosinophils (%) (Auto) 4 % (0-3) Basophils (%) (Auto) 1 % (0-3) Neutrophils # (Auto) 3.8 x10^3/uL (1.8-7.7) Lymphocytes # (Auto) 2.7 x10^3/uL (1.0-4.8) Monocytes # (Auto) 0.6 x10^3/uL (0.0-1.1) Eosinophils # (Auto) 0.3 x10^3/uL (0.0-0.7) Basophils # (Auto) 0.1 x10^3/uL (0.0-0.2) Direct Bilirubin 0.1 mg/dL (0.0-0.2) Laboratory Tests Test 05/24/21 04:45 White Blood Count 7.4 x10^3/uL (4.0-11.0) Red Blood Count 4.04 x10^6/uL (3.50-5.40) Hemoglobin 12.4 g/dL (12.0-15.5) Hematocrit 36.8 % (36.0-47.0) Mean Corpuscular Volume 91 fL (79-100) Mean Corpuscular Hemoglobin 31 pg (25-35) Mean Corpuscular Hemoglobin Concent 34 g/dL (31-37) Red Cell Distribution Width 13.5 % (11.5-14.5) Platelet Count 193 x10^3/uL (140-400) Neutrophils (%) (Auto) 52 % (31-73) Lymphocytes (%) (Auto) 36 % (24-48) Monocytes (%) (Auto) 8 % (0-9) Eosinophils (%) (Auto) 4 % (0-3) Basophils (%) (Auto) 1 % (0-3) Neutrophils # (Auto) 3.8 x10^3/uL (1.8-7.7) Lymphocytes # (Auto) 2.7 x10^3/uL (1.0-4.8) Monocytes # (Auto) 0.6 x10^3/uL (0.0-1.1) Eosinophils # (Auto) 0.3 x10^3/uL (0.0-0.7) Basophils # (Auto) 0.1 x10^3/uL (0.0-0.2) Sodium Level 146 mmol/L (136-145) Potassium Level 3.7 mmol/L (3.5-5.1) Chloride Level 107 mmol/L (98-107) Carbon Dioxide Level 27 mmol/L (21-32) Anion Gap 12 (6-14) Blood Urea Nitrogen 12 mg/dL (7-20) Creatinine 0.8 mg/dL (0.6-1.0) Estimated GFR (Cockcroft-Gault) 77.6 Glucose Level 94 mg/dL (70-99) Calcium Level 8.6 mg/dL (8.5-10.1) Total Bilirubin 0.3 mg/dL (0.2-1.0) Direct Bilirubin 0.1 mg/dL (0.0-0.2) Aspartate Amino Transf (AST/SGOT) 6 U/L (15-37) Alanine Aminotransferase (ALT/SGPT) 23 U/L (14-59) Alkaline Phosphatase 47 U/L (46-116) Total Protein 6.0 g/dL (6.4-8.2) Albumin 2.9 g/dL (3.4-5.0) Problem List Problems Medical Problems: (1) Acute cholecystitis Status: Acute (2) Right upper quadrant abdominal pain Status: Acute Justicifation of Admission Dx: Justifications for Admission: Justification of Admission Dx: Yes DENYS BORRERO MD May 24, 2021 13:18
--- NOTE | 2021-05-24 14:31 | RAD ---
EXAM: Intraoperative cholangiogram. HISTORY: Cholecystectomy. Pain. COMPARISON: None. FINDINGS: 5 fluoroscopic images were obtained during an intraoperative cholangiogram. The total fluor oscopy time is 0.23 minutes. There is contrast opacification of a dilated downstream common bile duct and the proximal small bowel. There is no evidence of a retained stone. IMPRESSION: Intraoperative cholangiogram without evidence of a retained stone. Electronically signed by: Lucero Mora MD (05/24/2021 2:29 PM) [id number]
--- NOTE | 2021-05-24 14:41 | PDOC4 ---
OPERATIVE NOTE Date: Date: May 24, 2021 Pre-Op Diagnosis: Calculous cholecystitis Post-Op Diagnosis: same Procedure Performed: laparoscopic cholecystectomy with cholangiogram Surgeon: Eric Borrero Anesthesia Type: GETA plus local Blood Loss: 50 Specimans Obtained: gallbladder Findings: edematous gallbladder with adhesions, some spasm of distal CBD, but no filling defect and normal cholangiogram, no other pathology noted Complications: none Operative Note: After obtaining informed consent, patient was taken to OR, induced under GETA and prepped in the usual fashion. 5 mm ports placed umbilical and RUQ, 12 port placed epigastric, all under laparoscopic guidance. Abdominal cavity was explored and noted as above. Gallbladder was grasped and triangl of calot exposed. Critical view achieved, demonstrating cystic artery and duct only structure into gallbladder. Cystic artery ligated with clips. Cholangiogram was obtained via cystic duct and demonstrated spasm of sphincter, but cleared and normal otherwise. Cystic duct controlled with clips and hemolok. Gallbladder taken off fossa using cautery, placed in bag, delivered and sent to pathology. Copious irrigation. No evidence of bleeding or other pathology. Ports removed without bleeding. Fascia repaired with 0 vicryl. Skin repaired with 4 0 monocryl. Dressing placed. Patient tolerated procedure well and sent to PACU in stable condition. All counts correct. Wound class is 3. DENYS BORRERO MD May 24, 2021 14:41
[2021-05-24] MEDS ORDERED: IV DEXTROSE 5% 250 ML BAG. IV PRN (14:45)
[2021-05-24] MEDS ORDERED: NALOXONE 0.4 MG/ML VIAL. IV PRN (14:45)
[2021-05-24] MEDS ORDERED: ONDANSETRON PF 4 MG/2 ML VIAL. IVP PRN ×2 (14:45→15:15)
[2021-05-24] MEDS ORDERED: IV NORMAL SALINE 1000ML BAG 1,000 ML IV SCH (14:45)
[2021-05-24] MEDS ORDERED: KETOROLAC 15 MG/ML VIAL. IV PRN (14:45)
[2021-05-24] MEDS: IV RINGERS,LACTATED 1000ML 1,000 ML IV SCH (14:45)
[2021-05-24] MEDS ORDERED: 0.9 % SODIUM CHLORIDE 10 ML DISP.SYRIN. IV PRN (14:45)
[2021-05-24] MEDS ORDERED: DEXTROSE 50% 25 GM / 50ML DISP.SYRIN. IV PRN (14:45)
[2021-05-24] MEDS: fentaNYL PF VIAL 100 MCG/2 ML VIAL IVP PRN ×2 (15:00→15:16)
[2021-05-24] MEDS ORDERED: fentaNYL PF VIAL 100 MCG/2 ML VIAL IVP PRN (15:15)
[2021-05-24] MEDS ORDERED: MORPHINE SULFATE 2 MG/ML INJ. IVP PRN (15:15)
[2021-05-24] MEDS ORDERED: HYDROmorphone 2 MG/ML INJ. IV PRN (15:15)
[2021-05-24] MEDS ORDERED: HYDROmorphone 2 MG/ML INJ. ONE (15:57)
[2021-05-24] MEDS: HYDROmorphone 2 MG/ML INJ. IV PRN ×2 (16:02→16:21)
--- NOTE | 2021-05-24 16:34 | NUR ---
Nurse's note: The patient underwent lap cholecystectomy and came back on the unit at 1633. VSS BP 127/80 HR75 RR19 O2 sat at 93%;Pain at 4-5/10. Lap site dressing are clean, dry, and intact. She tolerated clear liquids.
[2021-05-24] MEDS: DOCUSATE SODIUM 100 MG CAPSULE. PO SCH (20:31)
[2021-05-25] MEDS: IV RINGERS,LACTATED 1000ML 1,000 ML IV SCH ×2 (00:28→10:45)
[2021-05-25 02:41] VITALS: BP 115/69
[2021-05-25] MEDS: PIPERACILLIN/TAZOBACTAM 3.375 GM in IV NORMAL SALINE 50ML 50 ML IV SCH ×2 (05:35→11:14)
[2021-05-25 07:00] VITALS: BP 122/75
[2021-05-25] MEDS ORDERED: OXYC-325 PO (07:45)
[2021-05-25] MEDS ORDERED: AMOX1TAB58 PO (07:45)
[2021-05-25] MEDS: DOCUSATE SODIUM 100 MG CAPSULE. PO SCH (07:47)
[2021-05-25] MEDS: PANTOPRAZOLE IV PUSH 40 MG VIAL. IVP SCH (07:47)
--- NOTE | 2021-05-25 08:23 | PDOC ---
[employer] PROGRESS NOTE Date of Service DOS: DATE: 05/25/21 TIME: 08:20 Chief Complaint Chief Complaint Gallstone cholecystitis PMH: Breast cancer Double mastectomy, Thyroid disease 75% thyroidectomy Ovarian cyst Ovarian cyst removal History of Present Illness History of Present Illness 05/25/2021 Post-op day 1 Patient seen and examined at bedside Patient alert and in pleasant mood, in no distress Has urinated but no bowel movement yet Ambulation encouraged Probable discharge to home this afternoon Discussed with RN Chart reviewed 05/24/2021 Patient seen and examined beside. Was alert, pleasant, and ready for surgery this afternoon. Chart reviewed Discussed with RN Vitals/I&O Vitals/I&O: Vital Signs Date Time Temp Pulse Resp B/P (MAP) Pulse Ox O2 Delivery O2 Flow Rate FiO2 05/25/21 07:15 Room Air 6.0 05/25/21 07:00 98.0 79 18 122/75 (91) 96 98.0 I & O 05/24/21 05/24/21 05/25/21 15:00 23:00 07:00 Intake Total 900 ml 315 ml 100 ml Output Total 90 ml Balance 810 ml 315 ml 100 ml Physical Exam General: Alert, Oriented X3, Cooperative Heart: Regular rate, Normal S1, Normal S2 Abdomen: Soft, Other (mild epigastric ttp ) Extremities: No clubbing, No cyanosis Skin: No rashes, No breakdown Assessment and Plan Assessmemt and Plan Problems Medical Problems: (1) Acute cholecystitis Status: Acute (2) Right upper quadrant abdominal pain Status: Acute ASSESSMENT: Gallstone cholecystitis Breast cancer Double mastectomy, Thyroid disease 75% thyroidectomy Ovarian cyst Ovarian cyst removal PLAN: GI and Gen surg consulted - surgery 05/24. IV Zosyn IV fluids PRN pain meds PRN Zofran Probable discharge to home this afternoon Home meds Deep venous thrombosis prophylaxis Full code Comment Review of Relevant I have reviewed the following items demetrio (where applicable) has been applied. Medications: Current Medications Medications (Trade) Dose Ordered Sig/Lamar Route PRN Reason Start Time Stop Time Status Last Admin Dose Admin Ringer's Solution 1,000 ml @ 75 mls/hr [id number] IV 05/24/21 12:30 05/24/21 14:55 DC 05/24/21 12:24 Iohexol (Omnipaque 300 Mg/ml) 50 ml STK-MED ONCE .ROUTE 05/24/21 12:42 05/24/21 12:42 DC 05/24/21 13:43 Bupivacaine HCl/ Epinephrine Bitart (Sensorcain-Epi 0.25% Kit) 30 ml STK-MED ONCE .ROUTE 05/24/21 12:42 05/24/21 12:43 DC 05/24/21 13:43 Ketorolac Tromethamine (Toradol 15mg Vial) 15 mg PRN Q6HRS PRN IV MODERATE PAIN 05/24/21 14:45 05/29/21 14:44 05/24/21 19:21 Docusate Sodium (Colace) 100 mg BID PO 05/24/21 21:00 05/25/21 07:47 Fentanyl Citrate (Fentanyl 2ml Vial) 50 mcg PRN Q5MIN PRN IVP Acute Pain 05/24/21 15:15 05/25/21 15:14 05/24/21 15:16 Morphine Sulfate (Morphine Sulfate) 2 mg PRN Q10MIN PRN IVP Mild Pain 05/24/21 15:15 05/25/21 15:14 05/24/21 15:31 Hydromorphone HCl (Dilaudid) 0.4 mg PRN Q10MIN PRN IV MODERATE TO SEVERE PAIN 05/24/21 15:15 05/25/21 15:14 05/24/21 16:21 Justifications for Admission Other Justification TYSHAWN BEAULIEU III DO May 25, 2021 08:23
--- NOTE | 2021-05-25 09:36 | PDOC ---
Date of Service: DATE: 05/25/21 TIME: 09:34 Subjective: Subjective: Some post-op pain. Anxious to go home. Tolerating diet. No flatus but feels rumbling. Objective: Vital Signs: Vital Signs Date Time Temp Pulse Resp B/P (MAP) Pulse Ox O2 Delivery O2 Flow Rate FiO2 05/25/21 07:15 Room Air 6.0 05/25/21 07:00 98.0 79 18 122/75 (91) 96 98.0 Labs: CULTURE URINE Final 20,000 CFU/ML FINAL ID=[id number] ALBICANS [place] [address] assistant food service director: Tala García MD Organism 1 AJIT ALBICANS Imaging: IOC IMPRESSION: Intraoperative cholangiogram without evidence of a retained stone. PE: GEN: NAD LUNGS: CTAB HEART: RRR ABD: NABS, S/ND, some tenderness RUQ/epigastrium NEURO/PSYCH: A & O 3 A/P: S/p cholecystectomy - IOC normal as above -- DC per surgery. UA noted - defer to primary. Follow-up for scopes as discussed. Justicifation of Admission Dx: Justifications for Admission: Justification of Admission Dx: Yes MARLENA BATISTA May 25, 2021 09:36
[2021-05-25 11:00] VITALS: BP 116/75
--- NOTE | 2021-05-25 11:45 | NUR ---
Discharge Note: NEPTALI DC Discharge instructions and discharge home medications reviewed with Patient and a copy given. All questions have been answered and understanding verbalized. The following instructions and handouts were given: Discharge instructions, new prescriptions, education, and follow up recommendations. Discontinued lines and drains: Peripheral IV discontinued intact. Patient discharged to Home or Self Care with Spouse via Wheelchair off unit by SANNA
--- NOTE | 2021-05-25 11:49 | DS ---
DATE OF DISCHARGE: 05/25/2021 ADMISSION DIAGNOSIS: Cholecystitis. DISCHARGE DIAGNOSES: Postop laparoscopic cholecystectomy, history of breast cancer, double mastectomy, thyroid disease, 75% thyroidectomy, ovarian cyst and ovarian cyst removal. HOSPITAL COURSE: The patient is a pleasant, middle-aged female who presented with gallstone cholecystitis. She was admitted. We consulted General Surgery and placed her on IV antibiotics. She was taken to the OR yesterday. Today, I saw and examined her. She looks great, wants to go home. We plan to discharge. DISPOSITION: Home. ACTIVITY: As tolerated. DIET: Low sodium. DISCHARGE MEDICATIONS: Please see the MRAD. Other than meds per routine, I sent scripts for p.r.n. Percocet 5 mg q.4 and Augmentin 500 b.i.d. We will continue her home meds, which include amitriptyline 50 at bedtime, escitalopram 10 a day, lisinopril 20 a day, hydrochlorothiazide 12.5 a day, lorazepam 0.5 q.8 p.r.n., Protonix 40 a day and tamoxifen 10 daily. TOTAL TIME: Thirty four minutes. NOBLE/KAYDEN/BRAD DR: NOBLE/harshad TID: [id number]
--- NOTE | 2021-05-25 11:54 | NUR ---
SW following. Discussed with RN, pt from home with , room air, low fat diet. Discharge order for home with self care. RN advised no SW needs.
--- NOTE | 2021-05-27 17:08 | PATHOLOGY ---
[facility] Accession Number: [id number] . 01 Material submitted: . gallbladder - GALLBLADDER AND CONTENTS . 01 Clinical history: . ACUTE CHOLECYSTITIS LAP JUAN CARLOS W/ GRAMS . 02 Diagnosis: Gallbladder, laparoscopic cholecystectomy: - Cholelithiasis. - Acute and chronic cholecystitis with increased eosinophils. (JPM:staci; 05/27/2021) QMS 05/27/2021 1239 Local . 02 Comment: There is no evidence of malignancy. (JPM:staci; 05/27/2021) . 02 Electronically signed: . Anshu Phelan MD, Pathologist NPI- [id number] . 01 Gross description: . Fixative: Formalin Labeled: Gallbladder and contents Specimen received: Intact Dimensions: 10.0 x 3.3 x 3.0 cm Lymph node: Not identified Serosa: Amaya-sanchez and dusky Calculi: A green cholelith (1.5 x 1.2 x 1.2 cm) Mucosa: Sanchez, green, velvety, with patchy areas of hemorrhage Average wall thickness: 0.3 cm Abnormalities: None A1: Gallbladder, represented (NEWTOK; 05/26/2021) DKA/DKA 05/26/2021 1231 Local . 02 Pathologist provided ICD-10: K80.12 . 02 CPT . 162442 Specimen Comment: A courtesy copy of this report has been sent to [phone] Specimen Comment: [id number], Specimen Comment: Report sent to , DR GENTILE / DR BEAULIEU Specimen Comment: A duplicate report has been generated due to demographic updates. Performed at: [address], [place], [place] [id number] MD Jeovany Bennett MD Phone: [phone] Performed at: [address] [id number] MD Anshu Phelan MD Phone: [phone]
== END 2021-05-25 11:45 | disposition home or self-care (01) ==
LOC: ER 05:55 → 5 NORTH 07:18
PROVIDERS: ADMIT Internal Medicine; ATTEND Internal Medicine
DX: K80.01 Calculus of gallbladder with acute cholecystitis with obstruction (principal); Z20.822 Contact with and (suspected) exposure to COVID-19; I10 Essential (primary) hypertension; C50.919 Malignant neoplasm of unspecified site of unspecified female breast; K76.0 Fatty (change of) liver, not elsewhere classified; D35.00 Benign neoplasm of unspecified adrenal gland; E04.9 Nontoxic goiter, unspecified; E89.0 Postprocedural hypothyroidism; K80.00 Calculus of gallbladder with acute cholecystitis without obstruction; K80.10 Calculus of gallbladder with chronic cholecystitis without obstruction; K80.40 Calculus of bile duct with cholecystitis, unspecified, without obstruction; K82.8 Other specified diseases of gallbladder; N39.0 Urinary tract infection, site not specified; N83.209 Unspecified ovarian cyst, unspecified side; K83.9 Disease of biliary tract, unspecified; K21.9 Gastro-esophageal reflux disease without esophagitis; R10.11 Right upper quadrant pain; R13.10 Dysphagia, unspecified; Z85.3 Personal history of malignant neoplasm of breast; Z90.13 Acquired absence of bilateral breasts and nipples; Z79.810 Long term (current) use of selective estrogen receptor modulators (SERMs); Z92.21 Personal history of antineoplastic chemotherapy; Z87.891 Personal history of nicotine dependence; Z79.899 Other long term (current) drug therapy; Z98.890 Other specified postprocedural states
CPT/HCPCS: 36415; 47563; 74300; 76705; 80048; 80053; 80076; 81001; 81025; 83690; 85025; 87040; 87086; 87106; 87426; 88304; 96361; 96365; 96366; 96375; 96376; 99285; A4213; A4314; A4930; A6219; C1887; C9113; G0378; J1100; J1170; J1644; J1885; J2250; J2270; J2370; J2405; J2543; J2704; J2710; J3010; J3490; J7030; J7060; J7120; J7121; Q9967; U0003; U0005; G0379

== ENCOUNTER → 2021-07-22 | Outpatient (CLI) | payer OTHER ==
[~2021-07-22] MED LIST changes: +AMIT100T PO; +AMIT50TA PO; +AMOX1TAB58 PO; +ESCITALOPRAM OX10 MG PO; +LISI1TAB37 PO; +LORA0.5T96 PO; +OXYC-325 PO; +PANT40TA77 PO; +TAMO10TA6 PO
--- NOTE | 2021-07-22 16:26 | KCIC ---
CT SCREENING FOR CORONARY ARTERY History: Reason: Mixed hyperlipidemia, family hx. heart disease. / Spl. Instructions: / History: Technique: With retrospective electrocardiogram gating axial reconstructed noncontrast images of the chest at the level of the coronary arteries was performed. Images were post processed on workstation and calcium score calculated using the modified Agatston Janowitz protocol. Exposure: One or more of the following individualized dose reduction techniques were utilized for thi s examination: 1. Automated exposure control 2. Adjustment of the mA and/or kV according to patient size 3. Use of iterative reconstruction technique. Comparison: None Findings: Total coronary calcium score is 0. No plaque burden and low cardiovascular disease risk. Th is is based on the calcium score of 0 of the left main coronary artery, 0 of the left anterior descen ding artery, score of 0 of the left circumflex artery and score of 0 of the right coronary artery. Noncoronary findings: Prior granulomatous disease within the chest. Bilateral mastectomies. Pectus excavatum deformity. Inf iltration of the left anterior upper lobe likely related to radiation changes. IMPRESSION: 1. Low cardiovascular disease risk. Calcium score 0. Electronically signed by: German Bowen DO (07/22/2021 4:23 PM) [id number]
== END ==
LOC: KCIC CT 15:08
PROVIDERS: ATTEND Family Medicine
DX: D71 Functional disorders of polymorphonuclear neutrophils (principal); Q67.6 Pectus excavatum; Z90.13 Acquired absence of bilateral breasts and nipples; Z82.49 Family history of ischemic heart disease and other diseases of the circulatory system
CPT/HCPCS: 75571